=== PATIENT | female | born 1965 | race African-American/Black ===

== ENCOUNTER 2016-08-29 07:58 | Emergency (ER) | payer OTHER ==
[~2016-08-29] VITALS: Ht 157.5 cm; Wt 81.6 kg
--- NOTE | 2016-08-29 08:35 | ED HAND/WRIST INJURY COMPLAINT ---
History of Present Illness General Chief Complaint: Laceration Procedure Stated Complaint: LAC TO LT HAND S/P FALL Source: patient Exam Limitations: no limitations Vital Signs & Intake/Output Vital Signs & Intake/Output Vital Signs Date Time Temp Pulse Resp B/P Pulse O2 O2 Flow FiO2 Ox Delivery Rate 08/29 1102 98.1 80 18 148/70 98 Room Air 08/29 0802 97.0 81 16 156/95 99 Room Air ED Intake and Output 08/30 0000 08/29 1200 Intake Total Output Total Balance Patient 180 lb Weight Allergies Coded Allergies: mold (COUGHING 08/29/16) Reconcile Medications Cefadroxil 1 GRAM TABLET 1 TAB PO BID wound Triage Note: PT STATES SHE FELL DOWN HER BASEMENT STAIRS AND HAS A LAC TO HER LEFT HAND. PT DENIES HITTING HER HEAD STATES SHE SLID DOWN ON HER BUTTOCKS. Triage Nurses Notes Reviewed? yes Occurred: just prior to arrival Duration: minute(s):, continues in ED Timing: single episode today Injury Environment: home Severity: severe Pain/Injury Location: Left: Hand. Context: fall Method of Injury: direct blow HPI: Patient presents for evaluation of a left hand injury status post fall at home. Patient suffered a laceration to the volar aspect of her left hand and another the tip of the left index finger just radial to the nail. Although the patient denies foreign body sensation in the volar wound she states she may have a little piece of wood in the laceration of the tip of the index finger. Status is up-to-date. Patient held pressure to stop the bleeding. Past History Travel History Traveled to [place] past 21 day No Medical History Any Pertinent Medical History? see below for history Respiratory: asthma Surgical History Surgical History: non-contributory Psychosocial History What is your primary language Kazakh Tobacco Use: Never used ETOH Use: occasional use Illicit Drug Use: denies illicit drug use Family History Hx Contributory? No Review of Systems Review of Systems Constitutional: Reports: no symptoms. EENTM: Reports: no symptoms. Respiratory: Reports: no symptoms. Cardiovascular: Reports: no symptoms. GI: Reports: no symptoms. Genitourinary: Reports: no symptoms. Musculoskeletal: Reports: no symptoms. Skin: Reports: see HPI. Neurological/Psychological: Reports: no symptoms. Hematologic/Endocrine: Reports: no symptoms. Immunologic/Allergic: Reports: no symptoms. All Other Systems: Reviewed and Negative Physical Exam Physical Exam Hand Left: SEE BELOW Hand Right: normal inspection Comments: Gen.: Well-nourished, well-developed, no acute respiratory distress. Head: Normocephalic, atraumatic. Eyes: Normal inspection bilaterally Ears: Normal inspection bilaterally Nose: Normal inspection, nasal cannula in place Throat/mouth : Moist mucosa Neck: Supple, full range of motion, no goiter Heart: Regular rate and rhythm Lungs: Quiet respirations Back: Normal range of motion Extremities: Left hand: Laceration of the palm between the fourth and fifth digits, superficial laceration of the tip of the left index finger just radial to the nail, no obvious foreign bodies in the wounds, and no apparent tendon involvement. Neurologic: Cranial nerves grossly intact, speech is clear Skin: warm and dry Psychiatric: Calm, cooperative, no apparent delusions or hallucinations Diagram Hands Front 1) LACERATION Hands Back 1) LACERATION Progress Differential Diagnosis: fracture, tendon injury, neurovascular injury Plan of Care: Orders Procedure Date/time Status XRY-HAND, 3 View LEFT 08/29 833 Active XRY-FINGERS, LEFT 08/29 0834 Active Comments: 9 4-0 interrupted nylon sutures placed by PA student with my direct supervision of all critical components of the repair. Departure Departure Disposition: HOME OR SELF CARE Condition: Stable Clinical Impression Primary Impression: Laceration of hand Qualifiers: Encounter type: initial encounter Foreign body presence: without foreign body Laterality: left Qualified Code: S61.412A - Laceration without foreign body of left hand, initial encounter Secondary Impressions: Finger laceration Qualifiers: Encounter type: initial encounter Qualified Code: S61.219A - Laceration without foreign body of unspecified finger without damage to nail, initial encounter Referrals: UNKNOWN (PCP/Family) Additional Instructions: Have the sutures removed in 12 days. You may clean the wound daily gently with soapy water and apply a dressing. Duricef as prescribed. [id number] pain medication as needed. Apply cool compresses to the wound for 20 minutes, 2-3 times daily over the next 48 hours. Have the wound reevaluated by a physician ( either your primary care doctor or return to the emergency department) in 48 hours to check for any developing infection. Wear the splint over the next 48- 72 hours. Return if any concerns or sudden worsening. Please notify your primary care doctor of this emergency department visit and treatment plan. Please note that there might be incidental findings in your evaluation that are unrelated to the current emergency department visit. Please notify your primary care doctor about this emergency department visit in order to obtain and review all of the testing performed so that these incidental findings can be monitored as needed. If you had an x-ray performed, please understand that some fractures may not be seen on the initial set of x-rays. If your symptoms persist you might need a repeat set of x-rays to check for such a fracture. If you had a laceration evaluated, please understand that foreign bodies such as glass or wood may not be visible to the naked eye or on plain x-rays. If the wound becomes red, swollen, increasingly more painful or if there is any drainage from the wound, please have it reevaluated by a physician for the possibility of a retained foreign body. Thank you for choosing the [facility] Emergency Department for your care. It was a pleasure to serve you today. Kike Aguilar M.D. [facility] Departure Forms: Customer Survey General Discharge Information Prescriptions: Current Visit Scripts Cefadroxil 1 TAB PO BID #14 TAB Procedures Laceration/Wound Repair Laceration/Wound Repair: Wound's Depth, Shape: subcutaneous Wound Length (cm): 3.5 Wound Explored: no foreign body removed, irrigated extensively Irrigated w/ Saline (ccs): 200 Betadine Prep? Yes Anesthesia: 2% lidocaine Volume Anesthetic (ccs): 3 Wound Debrided: minimal Wound Repaired With: sutures Suture Size/Type: 4:0, nylon Number of Sutures: 9 Layer Closure? No Sterile Dressing Applied: Yes Splint Applied? Yes By Who? by nurse Type of Splint Applied: aluminium/foam
--- NOTE | 2016-08-29 09:42 | RADIOLOGY REPORT ---
EXAMINATION: XR HAND, LEFT CLINICAL INFORMATION: Fall with laceration to palm and index finger. Evaluate for wood foreign body. COMPARISON: None TECHNIQUE: AP, lateral, and oblique views of the left hand. FINDINGS: Bone alignment is normal. No fracture or dislocation is seen. Joint spaces are normal. No radiopaque soft tissue foreign body is seen. IMPRESSION: No fracture or radiopaque soft tissue foreign body seen.
[2016-08-29 11:02] VITALS: BP 148/70
[2016-08-29] MEDS ORDERED: CEFADROXIL1 GM PO (11:07)
== END 2016-08-29 11:17 ==
LOC: ERH 07:58
DX: S61.412A Laceration without foreign body of left hand, initial encounter (principal); S61.211A Laceration without foreign body of left index finger without damage to nail, initial encounter; W19.XXXA Unspecified fall, initial encounter; Y93.9 Activity, unspecified; Y92.009 Unspecified place in unspecified non-institutional (private) residence as the place of occurrence of the external cause
CPT/HCPCS: 73130-LT

== ENCOUNTER 2016-09-11 09:22 | Emergency (ER) | payer OTHER ==
[~2016-09-11] VITALS: Ht 157.5 cm; Wt 80.3 kg
[~2016-09-11 09:22] MED LIST: CEFADROXIL1 GM PO
[2016-09-11 09:24] VITALS: BP 137/98
--- NOTE | 2016-09-11 09:37 | ED ANIMAL BITE/WOUND CHECK ---
History of Present Illness General Chief Complaint: Suture Removal/Wound Recheck Stated Complaint: SUTURE REMOVAL, PAIN TO SITE Source: patient, old records Exam Limitations: no limitations Vital Signs & Intake/Output Vital Signs & Intake/Output Vital Signs Date Time Temp Pulse Resp B/P Pulse O2 O2 Flow FiO2 Ox Delivery Rate 09/11 0924 97.1 72 18 137/98 99 Room Air Allergies Coded Allergies: mold (COUGHING 08/29/16) Reconcile Medications Cefadroxil 1 GRAM TABLET 1 TAB PO BID wound Triage Note: PT HERE FOR SUTURE REMOVAL TO L HAND, PT STATES THAT SHE HAS BEEN HAVING SHOOTING PAIN AND THAT SHE IS UNABLE TO STRAIGHTEN HER L PINKY FINGER Triage Nurses Notes Reviewed? yes Onset: Abrupt Duration: ON THE Severity: mild, moderate Modifying Factors: Worsens With: movement. HPI: Patient returns for suture removal from left hand laceration repair on the . Wound has been healing well and drainage or discharge. No fever or chills. She is on antibiotics. She states she has a shooting pain that radiates up the finger. Past History Travel History Traveled to [place] past 21 day No Medical History Any Pertinent Medical History? 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 No Review of Systems Review of Systems Constitutional: Denies: chills, fever. EENTM: Reports: no symptoms. Respiratory: Reports: no symptoms. Cardiovascular: Reports: no symptoms. GI: Reports: no symptoms. Genitourinary: Reports: no symptoms. Musculoskeletal: Reports: no symptoms. Skin: Denies: erythema, rash. Neurological/Psychological: Reports: no symptoms. Hematologic/Endocrine: Reports: no symptoms. Immunologic/Allergic: Reports: no symptoms. All Other Systems: Reviewed and Negative Physical Exam Physical Exam General Appearance: well developed/nourished, mild distress Head: atraumatic Eyes: Bilateral: PERRL, EOMI. Ears, Nose, Throat: normal pharynx, normal ENT inspection, hearing grossly normal Neck: normal inspection, supple Peripheral Pulses: 2+ radial (R), 2+ radial (L) Back: normal inspection Extremities: normal range of motion, pain ALONG FINGER SUTURE SITE Neurologic/Psych: awake, alert, oriented x 3, normal mood/affect Skin: intact, normal color, warm/dry Lymphatic: no anterior cervical curtis Progress Differential Diagnosis: SUTURE REMOVAL, WOUND CHECK Plan of Care: 9 sutures removed without incident. Patient tolerated procedure well. Topical antibiotic on and place. She has a finger splint at home which she will put on today when she gets home. Cielo Rodriguez MD given for follow-up. Departure Departure Time of Disposition: 946 Disposition: HOME OR SELF CARE Condition: Stable Clinical Impression Primary Impression: Finger laceration Referrals: FRANKIE CLANCY,CIELO UNKNOWN (PCP/Family) Additional Instructions: Take Motrin as needed for pain. Keep the area clean and put topical with medical appointment on twice a day. Follow-up with the hand surgeon listed if you have persistent numbness of the finger or pain in the hand. Departure Forms: Customer Survey General Discharge Information
== END 2016-09-11 09:55 ==
LOC: ERH 09:22
DX: S61.412D Laceration without foreign body of left hand, subsequent encounter (principal)
CPT/HCPCS: 99281